=== PATIENT | male | born 1995 | race Caucasian/White ===

== ENCOUNTER → 2020-09-03 | Outpatient (CLI) | payer OTHER, SELFPAY ==
[2020-09-03 14:56] LABS: Pathologist Comment May follow
[2020-09-03 15:43] LABS: RBC /Synovial Fluid 0.026 10^6/uL (0); Synovial Fld Mononuclear WBC % 19.6 %; Synovial Fld Polynuclear WBC # 3.563 10^3/uL; Synovial Fld Polynuclear WBC % 80.4 %
[2020-09-03 16:39] LABS: AUTO B FLUID DILUENT BKGD CT WBC <0.1 RBC <0.01 (W<.1,R<.01); Color / Synovial Fluid Pink (Pale Yellow); Lymph 20 %; Monocyte /Synovial Fluid 6 %; Neutrophil 74 % (0-25); Source / Synovial Fluid RIGHT KNEE; Source- Body Fluid SYNOVIAL
[2020-09-03 16:40] LABS: Appearance /Synovial Fluid Cloudy (CLEAR); Body Fluid QC Type(s) BF2Q,BF3Q; Synovial Fld Mononuclear WBC # 0.865 10^3/ul
[2020-09-06 13:03] LABS: Pathologist Review Reviewed
== END | disposition home or self-care (01) ==
PROVIDERS: PCP Family Medicine; Visit Provider Orthopaedic Surgery
DX: M70.41 Prepatellar bursitis, right knee (principal)
CPT/HCPCS: 87070; 87075; 87205; 89050; 89051; 89060